=== PATIENT | female | born 2000 | race Two or more races ===

== ENCOUNTER 2024-06-01 14:12 | Outpatient (CLI) | payer OTHER | END 2024-06-01 14:17 | disposition home or self-care (01) | LOC: PRENATAL 14:12 | PROVIDERS: ATTEND Obstetrics & Gynecology Maternal & Fetal Medicine | DX: O36.80X0 Pregnancy with inconclusive fetal viability, not applicable or unspecified (principal); O26.859 Spotting complicating pregnancy, unspecified trimester; O24.319 Unspecified pre-existing diabetes mellitus in pregnancy, unspecified trimester; Z3A.01 Less than 8 weeks gestation of pregnancy ==

== ENCOUNTER 2024-06-15 07:03 | Day surgery (SDC) | payer OTHER ==
[2024-06-14 13:10] LABS: HEMATOCRIT 39.2 % (36.0-45.00); HEMOGLOBIN 13.2 g/dL (12.0-15.00); MEAN CELL VOLUME 87.5 fL (80.00-100.00); MEAN CORPUSCULAR HEMOGLOBIN 29.6 pg (27.00-32.0); MEAN CORPUSCULAR HGB CONC 33.8 g/dl (32.0-36.0); PLATELET COUNT 270 K/uL (150-450); RED BLOOD COUNT 4.48 M/uL (4.00-6.00); RED CELL DISTRIBUTION WIDTH 14.2 % (11.5-14.5)
[2024-06-14 13:12] LABS: PH,URINE 6.5 (5.0-8.0); URINE APPEARANCE Clear; URINE BILIRRUBIN Negative (NEGATIVE); URINE BLOOD Negative; URINE COLOR Yellow; URINE GLUCOSE Negative (NEGATIVE); URINE KETONE Trace (NEGATIVE); URINE LEUKOCYTE Negative; URINE NITRATE Negative; URINE PROTEIN Negative (NEGATIVE); URINE UROBILINOGEN 0.2 E.U./dl
[2024-06-14 13:13] LABS: URINE BACTERIA 48.9 uL (0.0-1933); URINE EPITHELIAL CELLS 8.8 uL (0.0-38.8)
[2024-06-14 13:17] LABS: URINE RBC 0.5 uL (0.0-20.8); URINE WBC 1.1 uL (0.0-23.2)
[2024-06-14 13:27] LABS: PARTIAL THROMBOPLASTIN TIME 27.6 SECONDS (22.0-34.0); PROTHROMBIN TIME 10.9 SECONDS (9.0-11.5)
[2024-06-14 13:56] LABS: ALBUMIN 4.2 gm/dL (3.4-5.0); BILIRUBIN TOTAL 0.39 mg/dL (0.3-1.2); CALCIUM 9.9 mg/dL (8.5-10.1); CREATININE SERUM 0.55 mg/dL (0.55-1.02); GFR 136.97; GLOBULINA 3.7 G/DL (2.4-3.5); POTASSIUM 3.95 mEq/L (3.5-5.1); TOTAL PROTEIN 7.9 gm/dL (6.4-8.2)
[~2024-06-15 07:03] MED LIST: HUMALOG100 UNIT/2
[2024-06-15] MEDS ORDERED: CHLORHEXIDINE GLUCONATE 120 ML BOTTLE TOP ONE (13:45)
== END 2024-06-15 18:50 | disposition home or self-care (01) ==
LOC: CIR.AMB 07:03
PROVIDERS: ATTEND Obstetrics & Gynecology
DX: O02.1 Missed abortion (principal); E11.9 Type 2 diabetes mellitus without complications; Z91.013 Allergy to seafood

== ENCOUNTER 2024-08-12 12:13 | Emergency (ER) | payer OTHER ==
[~2024-08-12] VITALS: Ht 160 cm; Wt 61.7 kg
[2024-08-12] MEDS ORDERED: 0.9 % SODIUM CHLORIDE 1,000 ML IV STA (12:36)
[2024-08-12 13:22] LABS: PH,URINE 7.5 (5.0-8.0); URINE APPEARANCE Clear; URINE BILIRRUBIN Negative (NEGATIVE); URINE BLOOD Large; URINE COLOR Yellow; URINE GLUCOSE Negative (NEGATIVE); URINE KETONE Negative (NEGATIVE); URINE LEUKOCYTE Negative; URINE NITRATE Negative; URINE PROTEIN Negative (NEGATIVE); URINE UROBILINOGEN 0.2 E.U./dl
[2024-08-12 13:26] LABS: URINE BACTERIA 84.4 uL (0.0-1933); URINE RBC 183.8 uL (0.0-20.8)
[2024-08-12 13:34] LABS: BASO % 0.5 % (0.1-1.2); EOS # 0.52 (0.04-0.54); EOS % 6.3 % (0.7-7.0); HEMOGLOBIN 13.1 g/dL (11.2-15.7); LYMPH # 1.77 (1.18-3.74); LYMPH % 21.4 % (19.3-53.1); MEAN CORPUSCULAR HEMOGLOBIN 29.6 pg (25.6-32.2); MONO # 0.44 (0.24-0.82); MONO % 5.3 % (4.7-12.5); NEUT % 66.3 % (34.0-71.1); PLATELET COUNT 265 K/uL (163-369); RED BLOOD COUNT 4.43 M/uL (3.93-5.22); RED CELL DISTRIBUTION WIDTH 12.3 % (11.6-14.4)
[2024-08-12 13:37] LABS: URINE WBC 0.3 uL (0.0-23.2)
[2024-08-12 13:55] LABS: CALCIUM 8.9 mg/dL (8.5-10.1); CREATININE SERUM 0.62 mg/dL (0.55-1.02); GFR 119.28; POTASSIUM 4.11 mEq/L (3.5-5.1)
[2024-08-12] MEDS ORDERED: HYDROGEN PEROXIDE 473 ML BOTTLE TOP ONE (15:21)
== END 2024-08-12 15:33 | disposition home or self-care (01) ==
LOC: ER 12:13
PROVIDERS: Emergency Medicine
DX: N93.8 Other specified abnormal uterine and vaginal bleeding (principal); Z91.013 Allergy to seafood